=== PATIENT | male | born 1980 ===

== ENCOUNTER 2025-08-24 06:20 | Emergency (ER) | payer SELFPAY ==
[~2025-08-24] VITALS: Ht 170.1 cm; Wt 86.2 kg
[2025-08-24] MEDS ORDERED: MG-AL HYDROXIDE/SIMETICONE 30 ML UDC PO ONE (07:20)
[2025-08-24] MEDS ORDERED: IOHEXOL 300 MG/ML 100 ML VIAL IV ONE (07:25)
[2025-08-24 07:34] LABS: BASO # 0.0 10*3/uL (0.0-0.1); BASO % 0.5 % (0.0-1.0); EOS # 0.1 10*3/uL (0.0-0.4); EOS % 1.5 % (1.0-4.0); MEAN CELL VOLUME 86.9 fl (80.0-94.0); MEAN CORPUSCULAR HGB 29.4 pg (27.0-31.0); MEAN PLATELET VOLUME 9.7 fl (9.6-12.3); MONO # 0.4 10*3/uL (0.1-1.0); MONO % 4.4 % (3.0-9.0); NEUT # 5.8 10*3/uL (2.3-7.9); NEUT % 71.2 % (47.0-73.0); NUCLEATED RED BLOOD CELL 0.0 % (0.0-0.0); NUCLEATED RED BLOOD CELL 0.0 10*3/uL (0.0-0.0); PLATELET COUNT AUTOMATED 264 10*3/uL (130-400); RED CELL DISTRI WIDTH 13.2 % (0-14.5)
[2025-08-24] MEDS ORDERED: IOHEXOL 300 MG/ML 100 ML VIAL ONE (07:52)
[2025-08-24 08:01] LABS: BUN 12 mg/dl (9-23); SGPT/ALT 19 U/L (5-49)
[2025-08-24] MEDS ORDERED: Ondansetron4 MG PO (10:09)
[2025-08-24] MEDS ORDERED: PROTONIX40 MG PO (10:09)
== END 2025-08-24 10:42 | disposition home or self-care (01) ==
LOC: ED 06:20
PROVIDERS: Student in an Organized Health Care Education/Training Program
DX: R10.13 Epigastric pain (principal); K59.00 Constipation, unspecified